=== PATIENT | female | born 1995 | race Caucasian/White ===

== ENCOUNTER 2017-09-18 19:06 | Emergency (ER) | payer OTHER ==
[2017-09-18 19:13] VITALS: BP 120/65
--- NOTE | 2017-09-18 19:27 | ER Document Report ---
HPI - HPI Patient complains to provider of: Swelling on left wrist Pain Level: 4 Context: Patient is a 22-year-old female presents emergency department complaining of left wrist pain. Patient states that she was told she has a ganglion cyst on the dorsal aspect of her left wrist. She denies any previous aspiration, any previous home remedies. She states that she has had approximately for 2 months but she picked something up awkwardly at work the other day and noticed more pain and swelling over the past couple of days. She otherwise denies any fever , breaks in the skin, any redness. Past Medical History - Social History Smoking Status: Never Smoker Family History: Reviewed & Not Pertinent Vertical Provider Document - CONSTITUTIONAL Agree With Documented VS: Yes Notes: PHYSICAL EXAM GENERAL: Alert, interacts well. EXTREMITIES: Moves all 4 extremities spontaneously. Cystic lesion noted on the medial aspect of the dorsal wrist that is fluctuant to palpation no edema, radial pulses 2/4 bilaterally. No cyanosis. NEUROLOGICAL: Alert and oriented x4. Normal speech. PSYCH: Normal affect, normal mood. SKIN: Warm, dry, normal turgor. No rashes or lesions noted. - INFECTION CONTROL TRAVEL OUTSIDE OF THE [place] IN LAST 30 DAYS: No - RESPIRATORY O2 Sat by Pulse Oximetry: 98 Course - Re-evaluation Re-evalutation: 09/18/17 20:05 Patient is a 22-year-old female is hemodynamically stable, no acute distress afebrile. Presentation is consistent with a ganglion cyst and no noted abnormalities noted on x-ray. Ganglion cyst was aspirated of approximately 1 mm of clear yellow fluid. Patient referred to orthopedics for follow-up and discussed that the cyst is likely to recur. Discussed strict return precautions otherwise stable for discharge home. - Vital Signs Vital signs: Temp Pulse Resp BP Pulse Ox 98.2 F 58 L 18 120/65 98 09/18/17 19:10 09/18/17 19:10 09/18/17 19:10 09/18/17 19:10 09/18/17 19:10 - Diagnostic Test Radiology reviewed: Image reviewed, Reports reviewed Discharge - Discharge Clinical Impression: Ganglion cyst Condition: Good Disposition: HOME, SELF-CARE Instructions: Ganglion Cyst ([facility], [facility]) Referrals: EDDY SPAIN DO [ACTIVE STAFF] - Follow up in 1 month
--- NOTE | 2017-09-18 20:03 | RADIOLOGY REPORT (SQ) ---
EXAM DESCRIPTION: WRIST LEFT 3 VIEWS COMPLETED DATE/TIME: 09/18/2017 7:31 pm REASON FOR STUDY: pain and swelling, ganglion cyst present COMPARISON: None. NUMBER OF VIEWS: Three views left wrist. LIMITATIONS: None. FINDINGS: There is no acute or significant bone, joint or soft tissue abnormality. OTHER: No other significant finding. IMPRESSION: NORMAL STUDY. TECHNICAL DOCUMENTATION: JOB ID: [id number]
== END 2017-09-18 20:40 | disposition home or self-care (01) ==
LOC: ER 19:06
DX: M67.432 Ganglion, left wrist (principal); M79.89 Other specified soft tissue disorders; M25.532 Pain in left wrist
CPT/HCPCS: 99283